=== PATIENT | female | born 1950 | race Caucasian/White ===

== ENCOUNTER → 2016-10-08 | Outpatient (CLI) | payer MEDICARE, BC | END | disposition home or self-care (01) | LOC: CDC 14:15 | DX: M79.641 Pain in right hand (principal); G56.01 Carpal tunnel syndrome, right upper limb; M19.041 Primary osteoarthritis, right hand; R94.31 Abnormal electrocardiogram [ECG] [EKG] | CPT/HCPCS: 93000 ==